=== PATIENT | male | born 1950 | race Caucasian/White ===

== ENCOUNTER 2018-09-08 17:24 | Inpatient (IN) | payer MEDICARE, MEDICAID ==
[~2018-09-08] VITALS: Ht 170.2 cm; Wt 69.9 kg
[2018-09-08] MEDS ORDERED: ALBUTEROL/IPRATROPIUM 2.5MG/0.5MG, 3 ML ONE (18:20)
[2018-09-08] MEDS ORDERED: SODIUM CHLORIDE FLUSH 10ML SYR IVF ONE (18:30)
[2018-09-08] MEDS ORDERED: ALBUTEROL/IPRATROPIUM 2.5MG/0.5MG, 3 ML NPPB SCH (18:30)
[2018-09-08] MEDS ORDERED: methylPREDNISolone SOD SUCC 125 MG/2 ML IVP ONE (18:30)
[2018-09-08 18:52] LABS: BASOPHILS # (AUTO) 0.07 x10^3/uL (0-0.1); BASOPHILS % (AUTO) 1 % (0-1); EOSINOPHILS # (AUTO) 0.22 x10^3/uL (0-0.4); EOSINOPHILS % (AUTO) 3 % (1-7); LYMPHOCYTES % (AUTO) 32 % (22-44); MD NO; MEAN CORPUSCULAR HEMOGLOBIN 34.6 pg (27.5-34.5); MEAN CORPUSCULAR HGB CONC 33.4 g/dL (33.2-36.2); MEAN CORPUSCULAR VOLUME 103.5 fL (81-97); MEAN PLATELET VOLUME 7.7 fL (7.4-10.4); MONOCYTES # (AUTO) 0.62 x10^3/uL (0.2-0.8); MONOCYTES % (AUTO) 7 % (2-9); NEUTROPHILS # (AUTO) 4.89 x10^3/uL (1.8-6.8); NEUTROPHILS % (AUTO) 58 % (42-75); PLATELET COUNT 283 x10^3/uL (130-400); RED BLOOD COUNT 4.72 x10^6/uL (4.38-5.82); RED CELL DISTRIBUTION WIDTH 15.7 % (9.4-14.8)
[2018-09-08 18:56] LABS: INTERNATIONAL NORMALIZED RATIO 0.99 (0.93-1.1); PROTHROMBIN TIME 10.2 Seconds (9.6-11.5)
[2018-09-08 18:57] LABS: ALBUMIN 3.2 g/dL (3.4-5.0); ANION GAP 10 mmol/L (5-15); CALCIUM 8.4 mg/dL (8.5-10.1); CHLORIDE 110 mmol/L (98-107); CREATININE 1.14 mg/dL (0.7-1.3)
[2018-09-08 19:01] LABS: TROPONIN I 0.037 ng/mL (0.000-0.045)
[2018-09-08] MEDS ORDERED: SODIUM CHLORIDE FLUSH 10ML SYR IVF PRN (19:30)
[2018-09-08] MEDS ORDERED: CEFTRIAXONE 1,000 MG in SODIUM CHLORIDE 0.9% 50 ML IV SCH (20:00)
[2018-09-08] MEDS ORDERED: GUAIFENESIN/DM 200-20MG, 10ML UDC PO PRN (20:00)
[2018-09-08] MEDS ORDERED: CHLORDIAZEPOXIDE 25 MG CAPSULE PO PRN (20:00)
[2018-09-08] MEDS ORDERED: POLYETHYLENE GLYCOL 17 GM PACKET PO PRN (20:00)
[2018-09-08] MEDS ORDERED: BISACODYL 10 MG SUPP PR PRN (20:00)
[2018-09-08] MEDS ORDERED: ONDANSETRON ODT 4 MG PO PRN (20:00)
[2018-09-08 20:33] LABS: FOLATE LEVEL 13.6 ng/mL (3.1-17.5)
[2018-09-08] MEDS ORDERED: ALBUTEROL/IPRATROPIUM 2.5MG/0.5MG, 3 ML NPPB PRN (21:00)
[2018-09-08] MEDS: methylPREDNISolone SOD SUCC 125 MG/2 ML IVPush SCH (21:39)
[2018-09-08] MEDS: FUROSEMIDE 20 MG/2 ML IV SCH (21:39)
[2018-09-08] MEDS: POTASSIUM CHLORIDE 20 MEQ TAB.ER.PRT PO SCH (21:40)
[2018-09-08] MEDS: SODIUM CHLORIDE FLUSH 10ML SYR IVF SCH (21:40)
[2018-09-08] MEDS: HEPARIN 5,000 UNITS/ML, 1ML SQ SCH (21:40)
[2018-09-08] MEDS: CEFTRIAXONE PMX 1GM/50ML 50 ML IV SCH (22:04)
[2018-09-08 22:30] VITALS: BP 136/75
[2018-09-08] MEDS: AZITHROMYCIN 500 MG in SODIUM CHLORIDE 0.9% 250 ML IV SCH (22:57)
[2018-09-09 02:00] VITALS: BP 156/93
[2018-09-09] MEDS: methylPREDNISolone SOD SUCC 125 MG/2 ML IVPush SCH ×4 (02:34→20:13)
[2018-09-09] MEDS: HEPARIN 5,000 UNITS/ML, 1ML SQ SCH ×3 (04:38→20:13)
[2018-09-09] MEDS: ACETAMINOPHEN 325 MG TABLET PO PRN ×2 (04:38→21:43)
[2018-09-09] MEDS: ASPIRIN 81 MG TABLET EC PO SCH (05:51)
[2018-09-09 05:52] LABS: BASOPHILS # (AUTO) 0.02 x10^3/uL (0-0.1); BASOPHILS % (AUTO) 0 % (0-1); CALCIUM 8.7 mg/dL (8.5-10.1); CHLORIDE 105 mmol/L (98-107); EOSINOPHILS % (AUTO) 0 % (1-7); LYMPHOCYTES # (AUTO) 0.56 x10^3/uL (1-3.4); LYMPHOCYTES % (AUTO) 10 % (22-44); MD NO; MEAN CORPUSCULAR HEMOGLOBIN 34.6 pg (27.5-34.5); MEAN CORPUSCULAR HGB CONC 33.8 g/dL (33.2-36.2); MEAN CORPUSCULAR VOLUME 102.4 fL (81-97); MEAN PLATELET VOLUME 8.1 fL (7.4-10.4); MONOCYTES # (AUTO) 0.08 x10^3/uL (0.2-0.8); MONOCYTES % (AUTO) 1 % (2-9); NEUTROPHILS # (AUTO) 5.16 x10^3/uL (1.8-6.8); NEUTROPHILS % (AUTO) 89 % (42-75); PLATELET COUNT 267 x10^3/uL (130-400); RED BLOOD COUNT 4.62 x10^6/uL (4.38-5.82); RED CELL DISTRIBUTION WIDTH 15.1 % (9.4-14.8)
[2018-09-09] MEDS ORDERED: ASPIRIN 325 MG TABLET EC PO SCH (06:00)
[2018-09-09 06:01] LABS: ALANINE AMINOTRANSFERASE 52 U/L (12-78); ALBUMIN 3.3 g/dL (3.4-5.0); ALKALINE PHOSPHATASE 93 U/L (45-117); ANION GAP 11 mmol/L (5-15); BILIRUBIN,TOTAL 0.5 mg/dL (0.2-1.0); CHOL/HDL RATIO 1.8; CHOLESTEROL, TOTAL 189 mg/dL (140-239); CREATININE 1.19 mg/dL (0.7-1.3); HDL CHOL % 56 % (26-37); HDL CHOLESTEROL (DIRECT) 105 mg/dL (40-60); LDL CHOLESTEROL,CALCULATED 71 mg/dL (54-169); LDL/HDL RATIO 0.7 (0.5-3.0); TOTAL PROTEIN 7.3 g/dL (6.4-8.2); TRIGLYCERIDES 67 mg/dL (50-200); TROPONIN I 0.024 ng/mL (0.000-0.045); VLDL CHOLESTEROL 13 mg/dL (0-25)
[2018-09-09] MEDS: ALBUTEROL/IPRATROPIUM 2.5MG/0.5MG, 3 ML NPPB SCH ×4 (06:51→18:53)
[2018-09-09 07:03] VITALS: BP 169/103
[2018-09-09] MEDS: POTASSIUM CHLORIDE 20 MEQ TAB.ER.PRT PO SCH ×2 (07:34→16:11)
[2018-09-09] MEDS: FUROSEMIDE 20 MG/2 ML IV SCH ×2 (07:34→16:11)
[2018-09-09] MEDS: SENNA/DOCUSATE TABLET PO SCH ×2 (07:34→09:00)
[2018-09-09] MEDS: SODIUM CHLORIDE FLUSH 10ML SYR IVF SCH ×2 (07:35→20:15)
[2018-09-09 07:40] VITALS: BP 155/90
[2018-09-09 11:37] LABS: TROPONIN I < 0.015 ng/mL (0.000-0.045)
[2018-09-09 12:24] VITALS: BP 133/76
[2018-09-09] MEDS: LORazepam 2 MG/ML, 1ML IVPush PRN ×2 (13:02→20:31)
[2018-09-09] MEDS: BACLOFEN 10 MG TABLET PO SCH ×2 (16:11→21:37)
[2018-09-09 20:00] VITALS: BP 131/74
[2018-09-09] MEDS: CEFTRIAXONE PMX 1GM/50ML 50 ML IV SCH (21:38)
[2018-09-09] MEDS: AZITHROMYCIN 500 MG in SODIUM CHLORIDE 0.9% 250 ML IV SCH (23:27)
[2018-09-10] MEDS: LORazepam 2 MG/ML, 1ML IVPush PRN ×5 (00:50→21:40)
[2018-09-10 01:22] VITALS: BP 137/80
[2018-09-10] MEDS: methylPREDNISolone SOD SUCC 125 MG/2 ML IVPush SCH ×4 (02:11→20:54)
[2018-09-10] MEDS: HEPARIN 5,000 UNITS/ML, 1ML SQ SCH ×3 (04:11→20:54)
[2018-09-10 05:02] VITALS: BP 156/93
[2018-09-10] MEDS: ALBUTEROL/IPRATROPIUM 2.5MG/0.5MG, 3 ML NPPB SCH ×4 (05:25→19:31)
[2018-09-10] MEDS: ASPIRIN 81 MG TABLET EC PO SCH (06:15)
[2018-09-10 07:09] VITALS: BP 147/85
[2018-09-10] MEDS: SENNA/DOCUSATE TABLET PO SCH (08:03)
[2018-09-10] MEDS: MULTIVITAMIN 1 TABLET PO SCH (08:12)
[2018-09-10] MEDS: BACLOFEN 10 MG TABLET PO SCH ×3 (08:12→21:40)
[2018-09-10] MEDS: POTASSIUM CHLORIDE 20 MEQ TAB.ER.PRT PO SCH ×2 (08:12→16:28)
[2018-09-10] MEDS: FUROSEMIDE 20 MG/2 ML IV SCH ×2 (08:12→16:28)
[2018-09-10] MEDS: SODIUM CHLORIDE FLUSH 10ML SYR IVF SCH ×2 (08:13→20:57)
[2018-09-10] MEDS: FOLIC ACID 1 MG TABLET PO SCH (08:13)
[2018-09-10] MEDS: THIAMINE 100MG TABLET PO SCH (08:13)
[2018-09-10 13:18] VITALS: BP 123/76
[2018-09-10] MEDS: ACETAMINOPHEN 325 MG TABLET PO PRN (14:54)
[2018-09-10 19:30] VITALS: BP 116/69
[2018-09-10] MEDS: CEFTRIAXONE PMX 1GM/50ML 50 ML IV SCH (20:54)
[2018-09-10] MEDS: AZITHROMYCIN 500 MG in SODIUM CHLORIDE 0.9% 250 ML IV SCH (23:21)
[2018-09-11] MEDS: LORazepam 2 MG/ML, 1ML IVPush PRN ×3 (01:04→14:44)
[2018-09-11 02:00] VITALS: BP 149/87
[2018-09-11] MEDS: methylPREDNISolone SOD SUCC 125 MG/2 ML IVPush SCH ×2 (02:19→08:51)
[2018-09-11] MEDS: HEPARIN 5,000 UNITS/ML, 1ML SQ SCH ×2 (04:53→12:33)
[2018-09-11 05:29] LABS: ANION GAP 6 mmol/L (5-15); CALCIUM 8.7 mg/dL (8.5-10.1); CHLORIDE 104 mmol/L (98-107)
[2018-09-11 05:32] LABS: ALANINE AMINOTRANSFERASE 34 U/L (12-78); ALKALINE PHOSPHATASE 64 U/L (45-117); BILIRUBIN,TOTAL 0.3 mg/dL (0.2-1.0); CREATININE 1.15 mg/dL (0.7-1.3); TOTAL PROTEIN 6.5 g/dL (6.4-8.2)
[2018-09-11] MEDS: ASPIRIN 81 MG TABLET EC PO SCH (06:19)
[2018-09-11] MEDS: ALBUTEROL/IPRATROPIUM 2.5MG/0.5MG, 3 ML NPPB SCH ×4 (06:47→19:17)
[2018-09-11 06:59] VITALS: BP 145/87
[2018-09-11] MEDS: FUROSEMIDE 20 MG/2 ML IV SCH ×2 (08:50→17:25)
[2018-09-11] MEDS: BACLOFEN 10 MG TABLET PO SCH ×3 (08:51→21:05)
[2018-09-11] MEDS: POTASSIUM CHLORIDE 20 MEQ TAB.ER.PRT PO SCH ×2 (08:51→17:25)
[2018-09-11] MEDS: MULTIVITAMIN 1 TABLET PO SCH (08:51)
[2018-09-11] MEDS: THIAMINE 100MG TABLET PO SCH (08:52)
[2018-09-11] MEDS: FOLIC ACID 1 MG TABLET PO SCH (08:52)
[2018-09-11] MEDS: ACETAMINOPHEN 325 MG TABLET PO PRN ×2 (08:53→14:43)
[2018-09-11] MEDS: SENNA/DOCUSATE TABLET PO SCH (08:53)
[2018-09-11] MEDS: SODIUM CHLORIDE FLUSH 10ML SYR IVF SCH ×2 (08:53→21:05)
[2018-09-11 13:11] VITALS: BP 137/87
[2018-09-11] MEDS ORDERED: OMNIPAQUE 350 MG/ML, 100ML BOTTLE ONE (14:05)
[2018-09-11] MEDS ORDERED: HEPARIN 5,000 UNITS/ML, 1ML IV ONE (15:00)
[2018-09-11] MEDS ORDERED: HEPARIN 25,000 UNITS/500ML PMX 500 ML IV PRN (15:00)
[2018-09-11 19:54] VITALS: BP 126/79
[2018-09-11] MEDS ORDERED: MONTELUKAST 10 MG TABLET PO SCH (21:00)
[2018-09-11] MEDS: CEFTRIAXONE PMX 1GM/50ML 50 ML IV SCH (21:05)
[2018-09-11] MEDS: AZITHROMYCIN 500 MG in SODIUM CHLORIDE 0.9% 250 ML IV SCH (23:47)
[2018-09-12] MEDS: HEPARIN 5,000 UNITS/ML, 1ML IV PRN ×2 (01:32→09:48)
[2018-09-12 02:10] VITALS: BP 156/99
[2018-09-12] MEDS: ALBUTEROL/IPRATROPIUM 2.5MG/0.5MG, 3 ML NPPB SCH ×3 (06:15→14:12)
[2018-09-12] MEDS: ASPIRIN 81 MG TABLET EC PO SCH (06:24)
[2018-09-12 07:18] VITALS: BP 158/101
[2018-09-12 07:22] LABS: MEAN CORPUSCULAR HEMOGLOBIN 34.2 pg (27.5-34.5); MEAN CORPUSCULAR HGB CONC 33.2 g/dL (33.2-36.2); MEAN PLATELET VOLUME 7.8 fL (7.4-10.4); PLATELET COUNT 221 x10^3/uL (130-400); RED BLOOD COUNT 4.83 x10^6/uL (4.38-5.82); RED CELL DISTRIBUTION WIDTH 15.4 % (9.4-14.8)
[2018-09-12 07:33] LABS: ALANINE AMINOTRANSFERASE 38 U/L (12-78); ALBUMIN 2.9 g/dL (3.4-5.0); ANION GAP 7 mmol/L (5-15); CALCIUM 8.5 mg/dL (8.5-10.1); CHLORIDE 102 mmol/L (98-107); CREATININE 1.16 mg/dL (0.7-1.3)
[2018-09-12 07:36] LABS: ALKALINE PHOSPHATASE 62 U/L (45-117); BASOPHILS # (AUTO) 0.05 x10^3/uL (0-0.1); BASOPHILS % (AUTO) 1 % (0-1); BILIRUBIN,TOTAL 0.5 mg/dL (0.2-1.0); EOSINOPHILS # (AUTO) 0.02 x10^3/uL (0-0.4); EOSINOPHILS % (AUTO) 0 % (1-7); LYMPHOCYTES % (AUTO) 16 % (22-44); MD SCAN; MONOCYTES # (AUTO) 0.69 x10^3/uL (0.2-0.8); MONOCYTES % (AUTO) 6 % (2-9); NEUTROPHILS # (AUTO) 8.73 x10^3/uL (1.8-6.8); NEUTROPHILS % (AUTO) 77 % (42-75); TOTAL PROTEIN 6.2 g/dL (6.4-8.2)
[2018-09-12] MEDS: FOLIC ACID 1 MG TABLET PO SCH (08:44)
[2018-09-12] MEDS: FUROSEMIDE 20 MG/2 ML IV SCH (08:44)
[2018-09-12] MEDS: THIAMINE 100MG TABLET PO SCH (08:44)
[2018-09-12] MEDS: POTASSIUM CHLORIDE 20 MEQ TAB.ER.PRT PO SCH (08:45)
[2018-09-12] MEDS: BACLOFEN 10 MG TABLET PO SCH ×2 (08:45→15:47)
[2018-09-12] MEDS: MULTIVITAMIN 1 TABLET PO SCH (08:45)
[2018-09-12] MEDS: SENNA/DOCUSATE TABLET PO SCH (08:46)
[2018-09-12] MEDS ORDERED: FLUTICASONE/VILANTEROL 200-25MCG/INH INH SCH (09:00)
[2018-09-12] MEDS: SODIUM CHLORIDE FLUSH 10ML SYR IVF SCH (09:00)
[2018-09-12] MEDS ORDERED: POTA20TA6 PO (11:55)
[2018-09-12] MEDS ORDERED: CEFT1FRO2 IV (11:55)
[2018-09-12] MEDS ORDERED: MULT1TAB60 PO (11:55)
[2018-09-12] MEDS ORDERED: FOLI-17 PO (11:55)
[2018-09-12] MEDS ORDERED: PRED20TA PO (11:55)
[2018-09-12] MEDS ORDERED: Initiate Coumadin Protocol MC (11:55)
[2018-09-12] MEDS ORDERED: IPRA3AMP30 NPPB (11:55)
[2018-09-12] MEDS ORDERED: THIA100T67 PO (11:55)
[2018-09-12] MEDS ORDERED: FURO10VI37 IV (11:55)
[2018-09-12] MEDS ORDERED: FLUT1BLS INH (11:55)
[2018-09-12] MEDS ORDERED: MONT10TA9 PO (11:55)
[2018-09-12] MEDS ORDERED: BACL-19 PO (11:55)
[2018-09-12] MEDS ORDERED: AZIT250T89 PO (11:55)
[2018-09-12] MEDS ORDERED: ENOX80SY5 SQ (11:57)
[2018-09-12 12:12] LABS: INTERNATIONAL NORMALIZED RATIO 1.09 (0.93-1.1); PROTHROMBIN TIME 11.2 Seconds (9.6-11.5)
[2018-09-12 13:09] VITALS: BP 130/88
[2018-09-12] MEDS ORDERED: WARFARIN 5 MG TABLET PO-COUM ONE (18:00)
== END 2018-09-12 16:13 | DRG 175 ==
LOC: ED 19:38 → EDIP 19:39 → 4EST 20:06
PROVIDERS: ADMIT Internal Medicine; ATTEND Internal Medicine
DX: I26.99 Other pulmonary embolism without acute cor pulmonale (principal); J15.9 Unspecified bacterial pneumonia; I50.43 Acute on chronic combined systolic (congestive) and diastolic (congestive) heart failure; J96.01 Acute respiratory failure with hypoxia; I82.441 Acute embolism and thrombosis of right tibial vein; E44.1 Mild protein-calorie malnutrition; E87.0 Hyperosmolality and hypernatremia; E87.2 Acidosis; F10.239 Alcohol dependence with withdrawal, unspecified; J44.0 Chronic obstructive pulmonary disease with (acute) lower respiratory infection; J44.1 Chronic obstructive pulmonary disease with (acute) exacerbation; J98.11 Atelectasis; Z66 Do not resuscitate; I11.0 Hypertensive heart disease with heart failure; D75.89 Other specified diseases of blood and blood-forming organs; F17.210 Nicotine dependence, cigarettes, uncomplicated; I07.1 Rheumatic tricuspid insufficiency; I27.20 Pulmonary hypertension, unspecified; Z52.4 Kidney donor; Z68.24 Body mass index [BMI] 24.0-24.9, adult; Z23 Encounter for immunization
CPT/HCPCS: 0399T; 36415; 71046; 71275; 80048; 80053; 80061; 82040; 82607; 82746; 83605; 83880; 84484; 85025; 85520; 85610; 85730; 87040; 90656; 93005; 93306; 93970; 94640; 99285; G0378; J0456; J0696; J1644; J7620; Q9967; J1940; J2060; J2930; J7050; J7512

== ENCOUNTER 2019-03-06 00:55 | Inpatient (IN) | payer MEDICARE, MEDICAID ==
[~2019-03-06] VITALS: Ht 170.2 cm; Wt 73.6 kg
[~2019-03-06 00:55] MED LIST: AZIT250T89 PO; BACL-19 PO; CEFT1FRO2 IV; ENOX80SY5 SQ; FLUT1BLS INH; FOLI-17 PO; FURO10VI37 IV; IPRA3AMP30 NPPB; Initiate Coumadin Protocol MC; MONT10TA9 PO; MULT1TAB60 PO; POTA20TA6 PO; PRED20TA PO; THIA100T67 PO
[2019-03-06] MEDS ORDERED: ALBUTEROL/IPRATROPIUM 2.5MG/0.5MG, 3 ML ONE (01:05)
--- NOTE | 2019-03-06 01:07 | NUR ---
BIB [facility] PT WAS AT [facility] WHEN DEVELOPED SOB. SPO2 77% ON ROOM AIR. PLACED ON 6L SPO2 94%. PIV PLACED PER [facility]. PT SMOKES 1/2PACK OF CIGARETTES DAILY. DRINKS 1 PINT DAILY. ALERT AND ORIENTED X4. SPO2 86% ON ROOM AIR. PT PLACED ON 6L NASAL CANNULA AND BREATHING TREATMENT STARTED. PT HAVING TREMORS WHICH HE SAYS ALSO STARTED TONIGHT. HAS HISTORY OF PE AND COPD WITH NO HOME OXYGEN. SAYS HE WAS ON BLOOD THINNERS IN THE HOSPITAL FOR THE PE BUT NEVER GOT HIS PRESCRIPTION FILLED FOR THE BLOOD THINNERS WHEN HE WAS DISCHARGED.
--- NOTE | 2019-03-06 01:11 | NUR ---
PT PLACED ON 6L OXYMASK PER RESPIRATORY THERAPY.
[2019-03-06] MEDS ORDERED: CEFTRIAXONE PMX 1GM/50ML 50 ML ONE (01:28)
[2019-03-06] MEDS ORDERED: CEFTRIAXONE PMX 1GM/50ML 50 ML IV ONE (01:30)
[2019-03-06] MEDS ORDERED: AZITHROMYCIN 500 MG in SODIUM CHLORIDE 0.9% 250 ML IV ONE (01:30)
[2019-03-06] MEDS ORDERED: SODIUM CHLORIDE 0.9% 1,000ML IVBOLUS ONE (01:30)
[2019-03-06] MEDS ORDERED: ALBUTEROL/IPRATROPIUM 2.5MG/0.5MG, 3 ML NPPB ONE (01:30)
[2019-03-06 01:44] LABS: ALBUMIN 3.4 g/dL (3.4-5.0); ANION GAP 10 mmol/L (5-15); CHLORIDE 109 mmol/L (98-107); CREATININE 1.21 mg/dL (0.7-1.3)
[2019-03-06 01:48] LABS: BASOPHILS # (AUTO) 0.01 x10^3/uL (0-0.1); BASOPHILS % (AUTO) 0 % (0-1); EOSINOPHILS # (AUTO) 0.02 x10^3/uL (0-0.4); EOSINOPHILS % (AUTO) 0 % (1-7); LYMPHOCYTES # (AUTO) 0.94 x10^3/uL (1-3.4); LYMPHOCYTES % (AUTO) 10 % (22-44); MD NO; MEAN CORPUSCULAR HEMOGLOBIN 34.5 pg (27.5-34.5); MEAN CORPUSCULAR HGB CONC 34.8 g/dL (33.2-36.2); MEAN CORPUSCULAR VOLUME 99.1 fL (81-97); MEAN PLATELET VOLUME 7.8 fL (7.4-10.4); MONOCYTES # (AUTO) 0.81 x10^3/uL (0.2-0.8); MONOCYTES % (AUTO) 9 % (2-9); NEUTROPHILS # (AUTO) 7.38 x10^3/uL (1.8-6.8); NEUTROPHILS % (AUTO) 81 % (42-75); PLATELET COUNT 141 x10^3/uL (130-400); RED BLOOD COUNT 4.28 x10^6/uL (4.38-5.82); RED CELL DISTRIBUTION WIDTH 15.3 % (9.4-14.8); TROPONIN I < 0.015 ng/mL (0.000-0.045)
--- NOTE | 2019-03-06 01:52 | NUR ---
PT GOING FOR CT SCAN OF CHEST.
--- NOTE | 2019-03-06 02:11 | NUR ---
PT BACK FROM CT. ZITHROMAX STARTED. PT CHANGED TO OPTIFLOW 35% 40LITERS. SPO2 92%
[2019-03-06] MEDS ORDERED: OMNIPAQUE 350 MG/ML, 100ML BOTTLE ONE (02:22)
--- NOTE | 2019-03-06 03:13 | NUR ---
PT SLEEPING. VSS. REMAINS ON OPTIFLOW.
[2019-03-06] MEDS ORDERED: hydrALAzine 20 MG/ML, 1ML IVPush PRN (04:00)
[2019-03-06] MEDS ORDERED: POLYETHYLENE GLYCOL 17 GM PACKET PO PRN (04:00)
[2019-03-06] MEDS ORDERED: ENOXAPARIN 40 MG/0.4 ML SQ SCH (04:00)
[2019-03-06] MEDS ORDERED: NICOTINE 14MG/24 HR PATCH.TD24 TD SCH (04:00)
[2019-03-06] MEDS ORDERED: ACETAMINOPHEN 325 MG TABLET PO PRN (04:00)
[2019-03-06] MEDS: CEFTRIAXONE PMX 2GM/50ML 50 ML IV SCH (04:00)
--- NOTE | 2019-03-06 04:16 | NUR ---
TRANSFERRED TO ROOM 22 ON HOSPITAL BED. TOLERATED WELL.
[2019-03-06] MEDS: methylPREDNISolone SOD SUCC 40 MG/ML IVPush SCH ×4 (04:30→22:43)
[2019-03-06] MEDS ORDERED: methylPREDNISolone SOD SUCC 40 MG/ML ONE ×2 (04:56→11:15)
[2019-03-06] MEDS: POTASSIUM CHLORIDE 20 MEQ, MAGNESIUM SULFATE 1 GM, MVI ADULT 10 ML, THIAMINE 200 MG, FO... IV SCH (05:21)
--- NOTE | 2019-03-06 05:27 | NUR ---
PT MEDICATED PER [facility]. IV INFUSION STARTED AT 75ML/HR.
--- NOTE | 2019-03-06 06:13 | NUR ---
PT SLEEPING. REMAINS ON OPTIFLOW 35% FIO2, 40L. UPDATED ON PLAN OF CARE.
[2019-03-06] MEDS ORDERED: LORazepam 1MG TABLET ONE (06:43)
[2019-03-06] MEDS: LORazepam 1MG TABLET PO PRN ×2 (06:46→22:43)
--- NOTE | 2019-03-06 06:46 | NUR ---
PT UP TO BEDSIDE COMMODE WITH STANDBY ASSIST. PT MEDICATED WITH 1MG ATIVAN FOR TREMORS, ALSO NOTICING DIAPHORESIS. TEMP 99.1 ORAL.
--- NOTE | 2019-03-06 07:06 | NUR ---
HANDOFF REPORT GIVEN TO KATIE GERMAN.
--- NOTE | 2019-03-06 07:13 | NUR ---
[facility] HAND-OFF REPORT RECEIVED FROM MONSERRAT HUMPHRIES. ASSUMING CARE OF PATIENT.
--- NOTE | 2019-03-06 08:00 | NUR ---
BREAKFAST TRAY SERVED TO PATIENT.
[2019-03-06] MEDS ORDERED: OMEPRAZOLE 20 MG CAPSULE.DR ONE (08:34)
[2019-03-06] MEDS ORDERED: CITALOPRAM 20 MG TABLET ONE (08:34)
[2019-03-06] MEDS ORDERED: ENOXAPARIN 40 MG/0.4 ML ONE (08:39)
[2019-03-06] MEDS ORDERED: NICOTINE 14MG/24 HR PATCH.TD24 ONE (08:39)
[2019-03-06] MEDS ORDERED: AZITHROMYCIN 250 MG TABLET ONE (08:40)
[2019-03-06] MEDS: AZITHROMYCIN 250 MG TABLET PO SCH (08:44)
[2019-03-06] MEDS: NICOTINE 14MG/24 HR PATCH.TD24 TD SCH (08:46)
[2019-03-06] MEDS: ENOXAPARIN 40 MG/0.4 ML SQ SCH (08:49)
--- NOTE | 2019-03-06 11:27 | NUR ---
VS UPDATED AND WNL. SOLUMEDROL GIVEN. PT SITTING UP AT BEDSIDE WITH NO COMPLAINTS. CIWA ASSESSMENT COMPLETED WITH SCORE OF 6. NO INTERVENTIONS NEEDED AT THIS TIME.
--- NOTE | 2019-03-06 12:20 | NUR ---
LUNCH BREAK NOTE: SPOKE TO CARIN IN RESPIRATORY AND PT CAN GO TO FLOOR WITH OXY MASK. REPORT CALLED TO THE FLOOR.
[2019-03-06 12:56] VITALS: BP 143/84
[2019-03-06] MEDS ORDERED: ALBUTEROL/IPRATROPIUM 2.5MG/0.5MG, 3 ML NPPB PRN (13:00)
[2019-03-06 14:00] VITALS: BP 150/82
[2019-03-06 19:54] VITALS: BP 143/78
[2019-03-06] MEDS: ENOXAPARIN MC SCH (22:30)
[2019-03-06] MEDS: NICOTINE MC SCH (22:30)
[2019-03-07 00:47] VITALS: BP 125/73
[2019-03-07] MEDS: CEFTRIAXONE PMX 2GM/50ML 50 ML IV SCH (04:06)
[2019-03-07] MEDS: LORazepam 1MG TABLET PO PRN ×3 (04:58→21:45)
[2019-03-07] MEDS: methylPREDNISolone SOD SUCC 40 MG/ML IVPush SCH ×4 (04:58→22:33)
[2019-03-07] MEDS: POTASSIUM CHLORIDE 20 MEQ, MAGNESIUM SULFATE 1 GM, MVI ADULT 10 ML, THIAMINE 200 MG, FO... IV SCH (04:58)
[2019-03-07 05:56] LABS: BASOPHILS % (AUTO) 0 % (0-1); EOSINOPHILS % (AUTO) 0 % (1-7); LYMPHOCYTES # (AUTO) 0.65 x10^3/uL (1-3.4); LYMPHOCYTES % (AUTO) 8 % (22-44); MD NO; MEAN CORPUSCULAR HEMOGLOBIN 34.6 pg (27.5-34.5); MEAN CORPUSCULAR HGB CONC 34.3 g/dL (33.2-36.2); MEAN CORPUSCULAR VOLUME 100.8 fL (81-97); MEAN PLATELET VOLUME 8.4 fL (7.4-10.4); MONOCYTES # (AUTO) 0.45 x10^3/uL (0.2-0.8); MONOCYTES % (AUTO) 6 % (2-9); NEUTROPHILS # (AUTO) 6.67 x10^3/uL (1.8-6.8); NEUTROPHILS % (AUTO) 86 % (42-75); PLATELET COUNT 117 x10^3/uL (130-400); RED BLOOD COUNT 4.09 x10^6/uL (4.38-5.82)
[2019-03-07 06:07] LABS: CHLORIDE 109 mmol/L (98-107)
[2019-03-07] MEDS: ENOXAPARIN MC SCH (06:30)
[2019-03-07] MEDS: NICOTINE MC SCH (06:30)
[2019-03-07 06:47] LABS: ALANINE AMINOTRANSFERASE 53 U/L (12-78); ALKALINE PHOSPHATASE 62 U/L (45-117); ANION GAP 5 mmol/L (5-15); BILIRUBIN,TOTAL 0.7 mg/dL (0.2-1.0); CALCIUM 8.2 mg/dL (8.5-10.1); CREATININE 0.99 mg/dL (0.7-1.3); TOTAL PROTEIN 6.1 g/dL (6.4-8.2)
[2019-03-07 07:33] VITALS: BP 122/75
[2019-03-07] MEDS: ENOXAPARIN 40 MG/0.4 ML SQ SCH ×2 (08:40→08:46)
[2019-03-07] MEDS: AZITHROMYCIN 250 MG TABLET PO SCH (08:40)
[2019-03-07] MEDS: NICOTINE 14MG/24 HR PATCH.TD24 TD SCH ×2 (08:41→08:46)
[2019-03-07 13:50] VITALS: BP 125/77
[2019-03-07 20:23] VITALS: BP 157/85
[2019-03-07 21:44] VITALS: BP 158/84
[2019-03-07] MEDS: TRAZODONE 50MG TABLET PO PRN (22:33)
[2019-03-08 01:09] VITALS: BP 158/90
[2019-03-08] MEDS: CEFTRIAXONE PMX 2GM/50ML 50 ML IV SCH (04:19)
[2019-03-08] MEDS: POTASSIUM CHLORIDE 20 MEQ, MAGNESIUM SULFATE 1 GM, MVI ADULT 10 ML, THIAMINE 200 MG, FO... IV SCH (04:19)
[2019-03-08] MEDS: methylPREDNISolone SOD SUCC 40 MG/ML IVPush SCH ×4 (04:20→22:46)
[2019-03-08 07:16] VITALS: BP 154/88
[2019-03-08] MEDS: ENOXAPARIN 40 MG/0.4 ML SQ SCH (08:53)
[2019-03-08] MEDS: NICOTINE 14MG/24 HR PATCH.TD24 TD SCH (08:53)
[2019-03-08] MEDS: AZITHROMYCIN 250 MG TABLET PO SCH (08:53)
[2019-03-08 13:58] VITALS: BP 126/86
[2019-03-08] MEDS: LORazepam 1MG TABLET PO PRN (14:01)
[2019-03-08] MEDS: TRAZODONE 50MG TABLET PO PRN (20:00)
[2019-03-08] MEDS: ALBUTEROL/IPRATROPIUM 2.5MG/0.5MG, 3 ML NPPB SCH (20:29)
[2019-03-08 20:48] VITALS: BP 137/77
[2019-03-09 00:58] VITALS: BP 151/83
[2019-03-09] MEDS: CEFTRIAXONE PMX 2GM/50ML 50 ML IV SCH (04:15)
[2019-03-09] MEDS: POTASSIUM CHLORIDE 20 MEQ, MAGNESIUM SULFATE 1 GM, MVI ADULT 10 ML, THIAMINE 200 MG, FO... IV SCH (05:17)
[2019-03-09] MEDS: methylPREDNISolone SOD SUCC 40 MG/ML IVPush SCH ×2 (05:17→10:21)
[2019-03-09 06:20] LABS: BASOPHILS # (AUTO) 0.02 x10^3/uL (0-0.1); BASOPHILS % (AUTO) 0 % (0-1); EOSINOPHILS % (AUTO) 0 % (1-7); LYMPHOCYTES # (AUTO) 0.59 x10^3/uL (1-3.4); LYMPHOCYTES % (AUTO) 7 % (22-44); MD NO; MEAN CORPUSCULAR HEMOGLOBIN 33.9 pg (27.5-34.5); MEAN CORPUSCULAR HGB CONC 33.5 g/dL (33.2-36.2); MEAN CORPUSCULAR VOLUME 101.2 fL (81-97); MEAN PLATELET VOLUME 7.9 fL (7.4-10.4); MONOCYTES # (AUTO) 0.38 x10^3/uL (0.2-0.8); MONOCYTES % (AUTO) 5 % (2-9); NEUTROPHILS # (AUTO) 7.02 x10^3/uL (1.8-6.8); NEUTROPHILS % (AUTO) 88 % (42-75); PLATELET COUNT 160 x10^3/uL (130-400); RED BLOOD COUNT 4.18 x10^6/uL (4.38-5.82); RED CELL DISTRIBUTION WIDTH 15.2 % (9.4-14.8)
[2019-03-09 06:34] LABS: ALANINE AMINOTRANSFERASE 50 U/L (12-78); ALBUMIN 2.7 g/dL (3.4-5.0); CREATININE 1.04 mg/dL (0.7-1.3)
[2019-03-09 06:36] LABS: ALKALINE PHOSPHATASE 52 U/L (45-117); BILIRUBIN,TOTAL 0.3 mg/dL (0.2-1.0); TOTAL PROTEIN 5.7 g/dL (6.4-8.2)
[2019-03-09 06:38] LABS: ANION GAP 7 mmol/L (5-15); CHLORIDE 109 mmol/L (98-107)
[2019-03-09 07:49] VITALS: BP 164/90
[2019-03-09] MEDS: ALBUTEROL/IPRATROPIUM 2.5MG/0.5MG, 3 ML NPPB SCH (08:30)
[2019-03-09] MEDS: AZITHROMYCIN 250 MG TABLET PO SCH (08:36)
[2019-03-09] MEDS: NICOTINE 14MG/24 HR PATCH.TD24 TD SCH (08:36)
[2019-03-09] MEDS: ENOXAPARIN 40 MG/0.4 ML SQ SCH (08:36)
[2019-03-09] MEDS ORDERED: AMLODIPINE 5 MG TABLET PO SCH (09:00)
[2019-03-09] MEDS: LORazepam 1MG TABLET PO PRN ×2 (09:06→17:09)
[2019-03-09 12:51] VITALS: BP 147/95
[2019-03-09 13:30] VITALS: BP 135/83
[2019-03-09 19:42] VITALS: BP 150/88
[2019-03-09] MEDS: TRAZODONE 50MG TABLET PO PRN (22:27)
[2019-03-10] MEDS: CEFTRIAXONE PMX 2GM/50ML 50 ML IV SCH (03:23)
[2019-03-10 03:50] VITALS: BP 155/85
[2019-03-10] MEDS: POTASSIUM CHLORIDE 20 MEQ, MAGNESIUM SULFATE 1 GM, MVI ADULT 10 ML, THIAMINE 200 MG, FO... IV SCH (04:10)
[2019-03-10 07:56] VITALS: BP 158/103
[2019-03-10] MEDS: AMLODIPINE 10 MG TAB PO SCH (09:45)
[2019-03-10] MEDS: AZITHROMYCIN 250 MG TABLET PO SCH (09:46)
[2019-03-10] MEDS: ENOXAPARIN 40 MG/0.4 ML SQ SCH (09:46)
[2019-03-10] MEDS: LORazepam 1MG TABLET PO PRN ×3 (09:47→20:52)
[2019-03-10] MEDS: NICOTINE 14MG/24 HR PATCH.TD24 TD SCH (09:47)
[2019-03-10 15:30] VITALS: BP 109/75
[2019-03-10] MEDS: METOPROLOL TARTRATE 25 MG TABLET PO SCH (18:19)
[2019-03-10 19:02] VITALS: BP 142/86
[2019-03-10] MEDS: TRAZODONE 50MG TABLET PO PRN (20:51)
[2019-03-10] MEDS ORDERED: ATORVASTATIN 40 MG TABLET PO SCH (21:00)
[2019-03-11 01:11] VITALS: BP 129/89
[2019-03-11] MEDS: POTASSIUM CHLORIDE 20 MEQ, MAGNESIUM SULFATE 1 GM, MVI ADULT 10 ML, THIAMINE 200 MG, FO... IV SCH (03:59)
[2019-03-11] MEDS: METOPROLOL TARTRATE 25 MG TABLET PO SCH (05:01)
[2019-03-11 05:58] LABS: CHLORIDE 101 mmol/L (98-107)
[2019-03-11] MEDS ORDERED: ASPIRIN 325 MG TABLET EC PO SCH (06:00)
[2019-03-11 06:03] LABS: ALANINE AMINOTRANSFERASE 65 U/L (12-78); ALBUMIN 2.9 g/dL (3.4-5.0); ALKALINE PHOSPHATASE 56 U/L (45-117); ANION GAP 4 mmol/L (5-15); BILIRUBIN,TOTAL 0.5 mg/dL (0.2-1.0); CALCIUM 8.5 mg/dL (8.5-10.1); CREATININE 1.05 mg/dL (0.7-1.3); TOTAL PROTEIN 6.1 g/dL (6.4-8.2)
[2019-03-11 06:22] LABS: BASOPHILS # (AUTO) 0.02 x10^3/uL (0-0.1); BASOPHILS % (AUTO) 0 % (0-1); EOSINOPHILS # (AUTO) 0.05 x10^3/uL (0-0.4); EOSINOPHILS % (AUTO) 1 % (1-7); LYMPHOCYTES # (AUTO) 1.97 x10^3/uL (1-3.4); LYMPHOCYTES % (AUTO) 25 % (22-44); MD NO; MEAN CORPUSCULAR HEMOGLOBIN 34.5 pg (27.5-34.5); MEAN CORPUSCULAR HGB CONC 34.1 g/dL (33.2-36.2); MEAN CORPUSCULAR VOLUME 101.1 fL (81-97); MEAN PLATELET VOLUME 7.6 fL (7.4-10.4); MONOCYTES # (AUTO) 0.82 x10^3/uL (0.2-0.8); MONOCYTES % (AUTO) 10 % (2-9); NEUTROPHILS % (AUTO) 64 % (42-75); PLATELET COUNT 198 x10^3/uL (130-400); RED BLOOD COUNT 4.77 x10^6/uL (4.38-5.82)
[2019-03-11 07:53] VITALS: BP 131/93
[2019-03-11] MEDS: NICOTINE 14MG/24 HR PATCH.TD24 TD SCH (08:55)
[2019-03-11] MEDS: ENOXAPARIN 40 MG/0.4 ML SQ SCH (08:56)
[2019-03-11] MEDS: AZITHROMYCIN 250 MG TABLET PO SCH (08:56)
[2019-03-11] MEDS: AMLODIPINE 10 MG TAB PO SCH (08:56)
[2019-03-11] MEDS: LORazepam 1MG TABLET PO PRN (09:07)
[2019-03-11] MEDS ORDERED: ASPI-650 PO (11:37)
[2019-03-11] MEDS ORDERED: AMLO10TA8 PO (11:37)
[2019-03-11] MEDS ORDERED: ATOR40TA78 PO (11:37)
[2019-03-11] MEDS ORDERED: METO25TA35 PO (11:37)
[2019-03-11] MEDS ORDERED: CEFD300C37 PO (11:37)
[2019-03-11 13:34] VITALS: BP 122/82
== END 2019-03-11 16:15 | DRG 871 ==
LOC: ED 01:41 → EDIP 03:27 → 4EST 13:17 → 3NE 03-09 13:37
PROVIDERS: ADMIT Family Medicine; ATTEND Family Medicine
DX: A41.9 Sepsis, unspecified organism (principal); J96.01 Acute respiratory failure with hypoxia; J18.1 Lobar pneumonia, unspecified organism; J44.0 Chronic obstructive pulmonary disease with (acute) lower respiratory infection; F10.239 Alcohol dependence with withdrawal, unspecified; J44.1 Chronic obstructive pulmonary disease with (acute) exacerbation; Z71.6 Tobacco abuse counseling; D69.6 Thrombocytopenia, unspecified; I10 Essential (primary) hypertension; K76.0 Fatty (change of) liver, not elsewhere classified; Z79.01 Long term (current) use of anticoagulants; Z79.899 Other long term (current) drug therapy; Z86.711 Personal history of pulmonary embolism; Z86.73 Personal history of transient ischemic attack (TIA), and cerebral infarction without residual deficits; Z90.5 Acquired absence of kidney; Z91.14 Patient's other noncompliance with medication regimen; F17.210 Nicotine dependence, cigarettes, uncomplicated
CPT/HCPCS: 36415; 36600; 70450; 71045; 71275; 80048; 80053; 82040; 82803; 83735; 83880; 84484; 85025; 87040; 93005; 94640; 96365; 96368; 99285; G0378; J0456; J0696; J1650; J3411; J3475; J3480; J7620; Q9967; J2920; J7030; J7050; J7512

== ENCOUNTER 2019-06-22 10:16 | Inpatient (IN) | payer MEDICARE, MEDICAID ==
[~2019-06-22] VITALS: Ht 170.2 cm; Wt 69.1 kg
[2019-06-29 07:51] VITALS: BP 127/74
== END 2019-06-29 11:59 | disposition home or self-care (01) | DRG 557 ==
LOC: ED 11:58 → EDIP 14:22 → 4EST 15:54
PROVIDERS: ADMIT Internal Medicine; ATTEND Internal Medicine
DX: M62.82 Rhabdomyolysis (principal); J96.00 Acute respiratory failure, unspecified whether with hypoxia or hypercapnia; F10.239 Alcohol dependence with withdrawal, unspecified; M60.9 Myositis, unspecified; E83.42 Hypomagnesemia; E87.6 Hypokalemia; F17.210 Nicotine dependence, cigarettes, uncomplicated; G47.00 Insomnia, unspecified; I11.0 Hypertensive heart disease with heart failure; I50.9 Heart failure, unspecified; J44.9 Chronic obstructive pulmonary disease, unspecified; K52.9 Noninfective gastroenteritis and colitis, unspecified; Z59.0 Homelessness; Z86.711 Personal history of pulmonary embolism; Z90.5 Acquired absence of kidney; Z71.6 Tobacco abuse counseling; Z71.41 Alcohol abuse counseling and surveillance of alcoholic
CPT/HCPCS: 36415; 36600; 80048; 80053; 82085; 82550; 82565; 82803; 83690; 83735; 83874; 85025; 85651; 86038; 86039; 94640; 96365; G0378; J1650; J3411; J3475; J7620; J7626; J2060; J7030; J7512

== ENCOUNTER 2019-12-14 21:13 | Inpatient (IN) | payer MEDICARE, MEDICAID ==
[~2019-12-14] VITALS: Ht 170.2 cm; Wt 65.0 kg
[~2019-12-14 21:13] MED LIST changes: +ACID1TAB7 PO; +AMLO10TA8 PO; +ASPI-650 PO; +ATOR40TA78 PO; +CARV12.543 PO; +CEFD300C37 PO; +FURO20TA3 PO; +LOPE2CAP PO; +METO25TA35 PO; +NICO-486 TD; +PRED10TA PO; +PRED5TAB PO
--- NOTE | 2019-12-14 21:32 | NUR ---
Patient brought in by [facility]; patient alert, oriented. Transferred from [facility]. Patient there to detox from alcohol. Patient drinks about a pint a day. Patient reports lengthy history of shortness of breath, reports being at his baseline, but required additional of 2L nasal cannula oxygen to keep pulsatile oxygen above 88%
[2019-12-14 22:14] LABS: BASOPHILS # (AUTO) 0.16 x10^3/uL (0-0.1); BASOPHILS % (AUTO) 1 % (0-1); EOSINOPHILS # (AUTO) 0.23 x10^3/uL (0-0.4); EOSINOPHILS % (AUTO) 2 % (1-7); LYMPHOCYTES % (AUTO) 21 % (22-44); MD NO; MEAN CORPUSCULAR HEMOGLOBIN 34.4 pg (27.5-34.5); MEAN CORPUSCULAR VOLUME 101.1 fL (81-97); MEAN PLATELET VOLUME 7.6 fL (7.4-10.4); MONOCYTES % (AUTO) 8 % (2-9); NEUTROPHILS # (AUTO) 7.96 x10^3/uL (1.8-6.8); NEUTROPHILS % (AUTO) 67 % (42-75); PLATELET COUNT 267 x10^3/uL (130-400); RED BLOOD COUNT 4.82 x10^6/uL (4.38-5.82); RED CELL DISTRIBUTION WIDTH 15.6 % (9.4-14.8)
[2019-12-14 22:26] LABS: ALBUMIN 2.9 g/dL (3.4-5.0); ANION GAP 11 mmol/L (5-15); CALCIUM 8.6 mg/dL (8.5-10.1); CHLORIDE 103 mmol/L (98-107); CREATININE 1.05 mg/dL (0.7-1.3)
[2019-12-14 22:30] LABS: TROPONIN I < 0.015 ng/mL (0.000-0.045)
[2019-12-14] MEDS ORDERED: ALBUTEROL/IPRATROPIUM 2.5MG/0.5MG, 3 ML NPPB ONE (23:00)
[2019-12-14] MEDS ORDERED: ALBUTEROL/IPRATROPIUM 2.5MG/0.5MG, 3 ML ONE (23:10)
--- NOTE | 2019-12-14 23:10 | NUR ---
Patient refusing prednisone because he feels they gave him a headache the week prior. Attempted to educate patient; patient not agreeable. Medication refused.
[2019-12-14] MEDS ORDERED: SODIUM CHLORIDE 0.9% 1,000ML IVBOLUS ONE (23:30)
[2019-12-14] MEDS ORDERED: CEFTRIAXONE PMX 1GM/50ML 50 ML IVPB ONE (23:30)
[2019-12-14] MEDS ORDERED: AZITHROMYCIN 500 MG in SODIUM CHLORIDE 0.9% 250 ML IVPB ONE (23:30)
[2019-12-14] MEDS ORDERED: NICOTINE 14MG/24 HR PATCH.TD24 ONE (23:47)
[2019-12-14] MEDS ORDERED: THIAMINE 100MG TABLET ONE (23:47)
[2019-12-14] MEDS ORDERED: DEXAMETHASONE 4 MG/ML, 5ML ONE (23:47)
[2019-12-14] MEDS: NICOTINE 14MG/24 HR PATCH.TD24 TD SCH (23:50)
[2019-12-14] MEDS: THIAMINE 100MG TABLET PO SCH (23:51)
[2019-12-15] MEDS ORDERED: DEXAMETHASONE 4 MG/ML, 1ML IVPush ONE
[2019-12-15] MEDS ORDERED: GUAIFENESIN/DM 200-20MG, 10ML UDC PO PRN
[2019-12-15] MEDS ORDERED: LORazepam 2 MG/ML, 1ML IVPush PRN
[2019-12-15] MEDS ORDERED: BISACODYL 10 MG SUPP PR PRN
[2019-12-15] MEDS ORDERED: CHLORDIAZEPOXIDE 25 MG CAPSULE PO PRN
[2019-12-15] MEDS ORDERED: POLYETHYLENE GLYCOL 17 GM PACKET PO PRN
[2019-12-15] MEDS ORDERED: ONDANSETRON ODT 4 MG PO PRN
[2019-12-15] MEDS ORDERED: CEFTRIAXONE PMX 1GM/50ML 50 ML ONE (00:07)
[2019-12-15] MEDS ORDERED: ALBUTEROL/IPRATROPIUM 2.5MG/0.5MG, 3 ML NPPB PRN (01:30)
[2019-12-15] MEDS: ACETAMINOPHEN 325 MG TABLET PO PRN ×3 (01:35→20:49)
[2019-12-15 01:40] VITALS: BP 123/83
[2019-12-15] MEDS: SODIUM CHLORIDE FLUSH 10ML SYR IVF SCH ×3 (02:12→20:49)
[2019-12-15] MEDS: AZITHROMYCIN 500 MG in SODIUM CHLORIDE 0.9% 250 ML IV SCH (02:13)
[2019-12-15 05:26] LABS: BASOPHILS # (AUTO) 0.03 x10^3/uL (0-0.1); BASOPHILS % (AUTO) 0 % (0-1); EOSINOPHILS # (AUTO) 0.04 x10^3/uL (0-0.4); EOSINOPHILS % (AUTO) 0 % (1-7); LYMPHOCYTES # (AUTO) 0.54 x10^3/uL (1-3.4); LYMPHOCYTES % (AUTO) 6 % (22-44); MD NO; MEAN CORPUSCULAR HEMOGLOBIN 34.4 pg (27.5-34.5); MEAN CORPUSCULAR HGB CONC 33.6 g/dL (33.2-36.2); MEAN CORPUSCULAR VOLUME 102.6 fL (81-97); MEAN PLATELET VOLUME 7.8 fL (7.4-10.4); MONOCYTES # (AUTO) 0.18 x10^3/uL (0.2-0.8); MONOCYTES % (AUTO) 2 % (2-9); NEUTROPHILS % (AUTO) 92 % (42-75); PLATELET COUNT 248 x10^3/uL (130-400); RED BLOOD COUNT 4.67 x10^6/uL (4.38-5.82); RED CELL DISTRIBUTION WIDTH 15.5 % (9.4-14.8)
[2019-12-15 05:33] LABS: CALCIUM 8.3 mg/dL (8.5-10.1); CHLORIDE 104 mmol/L (98-107)
[2019-12-15 05:37] LABS: ANION GAP 7 mmol/L (5-15); CREATININE 1.26 mg/dL (0.7-1.3)
[2019-12-15] MEDS: CARVEDILOL 12.5 MG TABLET PO SCH ×2 (05:59→16:48)
[2019-12-15] MEDS: HEPARIN 5,000 UNITS/ML, 1ML SQ SCH ×3 (08:00→16:00)
[2019-12-15 08:40] VITALS: BP 106/59
[2019-12-15] MEDS ORDERED: THIAMINE 100MG TABLET PO SCH (09:00)
[2019-12-15] MEDS ORDERED: MULTIVITAMIN 1 TABLET PO SCH (09:00)
[2019-12-15] MEDS: POTASSIUM CHLORIDE 20 MEQ TAB.ER.PRT PO SCH (09:51)
[2019-12-15] MEDS: THIAMINE 100MG TABLET PO SCH ×2 (09:51→20:49)
[2019-12-15] MEDS: MULTIVITAMINS/MINERALS TABLET PO SCH (09:51)
[2019-12-15] MEDS: FUROSEMIDE 20 MG TABLET PO SCH ×2 (09:52→16:48)
[2019-12-15] MEDS: FOLIC ACID 1 MG TABLET PO SCH (09:52)
[2019-12-15] MEDS: SENNA/DOCUSATE TABLET PO SCH (09:52)
[2019-12-15 13:08] VITALS: BP 122/85
[2019-12-15] MEDS ORDERED: ATORVASTATIN 40 MG TABLET PO SCH (21:00)
[2019-12-15 21:10] VITALS: BP 109/75
[2019-12-16] MEDS ORDERED: CEFTRIAXONE PMX 1GM/50ML 50 ML IV SCH
[2019-12-16] MEDS: HEPARIN 5,000 UNITS/ML, 1ML SQ SCH ×3 (00:15→16:00)
[2019-12-16] MEDS: NICOTINE 14MG/24 HR PATCH.TD24 TD SCH (00:15)
[2019-12-16 01:28] VITALS: BP 102/65
[2019-12-16] MEDS: AZITHROMYCIN 500 MG in SODIUM CHLORIDE 0.9% 250 ML IV SCH (01:33)
[2019-12-16 05:29] VITALS: BP 137/90
[2019-12-16] MEDS: CARVEDILOL 12.5 MG TABLET PO SCH (05:30)
[2019-12-16 06:04] LABS: BASOPHILS # (AUTO) 0.03 x10^3/uL (0-0.1); BASOPHILS % (AUTO) 0 % (0-1); EOSINOPHILS # (AUTO) 0.04 x10^3/uL (0-0.4); EOSINOPHILS % (AUTO) 0 % (1-7); LYMPHOCYTES # (AUTO) 1.49 x10^3/uL (1-3.4); LYMPHOCYTES % (AUTO) 11 % (22-44); MD NO; MEAN CORPUSCULAR HEMOGLOBIN 33.6 pg (27.5-34.5); MEAN CORPUSCULAR HGB CONC 32.5 g/dL (33.2-36.2); MEAN CORPUSCULAR VOLUME 103.3 fL (81-97); MEAN PLATELET VOLUME 8.4 fL (7.4-10.4); MONOCYTES % (AUTO) 6 % (2-9); NEUTROPHILS # (AUTO) 11.52 x10^3/uL (1.8-6.8); NEUTROPHILS % (AUTO) 83 % (42-75); PLATELET COUNT 260 x10^3/uL (130-400); RED BLOOD COUNT 5.03 x10^6/uL (4.38-5.82); RED CELL DISTRIBUTION WIDTH 15.4 % (9.4-14.8)
[2019-12-16 06:09] LABS: CHLORIDE 104 mmol/L (98-107)
[2019-12-16 06:18] LABS: ALANINE AMINOTRANSFERASE 17 U/L (12-78); ALBUMIN 2.6 g/dL (3.4-5.0); ALKALINE PHOSPHATASE 72 U/L (45-117); ANION GAP 4 mmol/L (5-15); BILIRUBIN,TOTAL 0.6 mg/dL (0.2-1.0); CALCIUM 8.8 mg/dL (8.5-10.1); CREATININE 1.13 mg/dL (0.7-1.3); TOTAL PROTEIN 6.6 g/dL (6.4-8.2)
[2019-12-16 07:32] VITALS: BP 124/87
[2019-12-16] MEDS: MULTIVITAMINS/MINERALS TABLET PO SCH (08:59)
[2019-12-16] MEDS: SENNA/DOCUSATE TABLET PO SCH (08:59)
[2019-12-16] MEDS: POTASSIUM CHLORIDE 20 MEQ TAB.ER.PRT PO SCH (08:59)
[2019-12-16] MEDS: ACETAMINOPHEN 325 MG TABLET PO PRN (08:59)
[2019-12-16] MEDS: FOLIC ACID 1 MG TABLET PO SCH (08:59)
[2019-12-16] MEDS: SODIUM CHLORIDE FLUSH 10ML SYR IVF SCH (08:59)
[2019-12-16] MEDS: FUROSEMIDE 20 MG TABLET PO SCH (08:59)
[2019-12-16] MEDS: THIAMINE 100MG TABLET PO SCH (08:59)
[2019-12-16 12:15] VITALS: BP 114/78
[2019-12-16] MEDS ORDERED: CEFD300C37 PO (15:19)
[2019-12-16] MEDS ORDERED: DOXY100T23 PO (15:19)
== END 2019-12-16 17:08 | disposition home or self-care (01) | DRG 193 ==
LOC: ED 22:25 → EDIP 23:28 → 3N 12-15 00:30 → DCLOUNGE 12-16 16:58
PROVIDERS: ADMIT Internal Medicine; ATTEND Internal Medicine
DX: J18.9 Pneumonia, unspecified organism (principal); J96.01 Acute respiratory failure with hypoxia; J44.0 Chronic obstructive pulmonary disease with (acute) lower respiratory infection; I50.32 Chronic diastolic (congestive) heart failure; D75.89 Other specified diseases of blood and blood-forming organs; E78.5 Hyperlipidemia, unspecified; E87.6 Hypokalemia; F10.20 Alcohol dependence, uncomplicated; I27.20 Pulmonary hypertension, unspecified; Z66 Do not resuscitate; Y90.9 Presence of alcohol in blood, level not specified; Z59.0 Homelessness; Z86.711 Personal history of pulmonary embolism; Z87.01 Personal history of pneumonia (recurrent); Z90.5 Acquired absence of kidney; Z91.19 Patient's noncompliance with other medical treatment and regimen; Z87.891 Personal history of nicotine dependence
CPT/HCPCS: 36415; 71045; 80048; 80053; 82040; 82607; 83880; 84145; 84484; 85025; 87040; 93005; 94640; 99285; G0378; J0456; J0696; J1100; J7620; J7030; J7050

== ENCOUNTER 2019-12-27 19:47 | Emergency (ER) | payer MEDICAID, MEDICARE ==
[~2019-12-27] VITALS: Ht 170.2 cm; Wt 70.0 kg
[~2019-12-27 19:47] MED LIST changes: +DOXY100T23 PO; +MONT10TA11 PO; -MONT10TA9 PO
[2019-12-27 20:07] VITALS: BP 117/69
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
--- NOTE | 2019-12-27 20:25 | NUR ---
PT REFUSING ALL LABS.
--- NOTE | 2019-12-27 20:31 | NUR ---
PT STATES "WHY AM I TIED DOWN, GET ME OUT OF THESE FUCKIN RESTRAINTS"
--- NOTE | 2019-12-27 20:32 | NUR ---
PT REFUSING TO ANSWER ASSESSMENT QUESTIONS
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
--- NOTE | 2019-12-28 | NUR ---
PT RESTING ON GURNEY WITH EYE CLOSED, RESPIRATIONS EVEN AND UNLABORED. NO ACUTE DISTRESS. WILL CONTINUE TO MONITOR.
--- NOTE | 2019-12-28 02:59 | NUR ---
PT AMBULATORY TO THE DISCHARGE DESK WITH A STEADY GAIT. PT A+OX4. PT OFFERED A TAXI VOUCHER AND HE SAID HE DIDNT WANT IT. PT SAID HE IS GOING TO WALK OVER TO THE CIRCUS CIRCUS AND DIDNT WANT A TAXI.
== END 2019-12-28 03:02 | disposition home or self-care (01) ==
LOC: ED 12-28 02:55 → MERGE 12-28 02:55 → ED 12-28 03:02
DX: F10.220 Alcohol dependence with intoxication, uncomplicated (principal); Y90.9 Presence of alcohol in blood, level not specified
CPT/HCPCS: 99283

== ENCOUNTER 2020-04-08 15:00 | Emergency (ER) | payer MEDICAID, MEDICARE ==
[~2020-04-08] VITALS: Ht 170.2 cm; Wt 77.0 kg
[~2020-04-08 15:00] MED LIST changes: +MULT-449 PO; -MULT1TAB60 PO
--- NOTE | 2020-04-08 15:15 | NUR ---
DON. REPORT RECEIVED FROM EMS. PT WAS FOUND AT [facility]. +ETOH. PT WAS DC FROM HOSPITAL(UNKNOWN) AT 10AM TODAY AND HAS BEEN DRINKING SINCE THEN. NO TRAUMA/GLF. INCONTINENT URINE. PT'S AOX4. RESPS EVEN AND UNLABORED. BP/SPO2 MONITORS IN PLACE. CALL LIGHT WITHIN REACH. EDMD AT BEDSIDE TO EVALUATE AT THIS TIME.
--- NOTE | 2020-04-08 15:26 | NUR ---
URINAL AT BEDSIDE.
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
[2020-04-08 15:39] LABS: BASOPHILS # (AUTO) 0.05 x10^3/uL (0-0.1); BASOPHILS % (AUTO) 1 % (0-1); EOSINOPHILS # (AUTO) 0.03 x10^3/uL (0-0.4); EOSINOPHILS % (AUTO) 1 % (1-7); LYMPHOCYTES # (AUTO) 1.31 x10^3/uL (1-3.4); LYMPHOCYTES % (AUTO) 20 % (22-44); MD NO; MEAN CORPUSCULAR HEMOGLOBIN 33.5 pg (27.5-34.5); MEAN CORPUSCULAR HGB CONC 33.3 g/dL (33.2-36.2); MEAN PLATELET VOLUME 7.7 fL (7.4-10.4); MONOCYTES # (AUTO) 0.61 x10^3/uL (0.2-0.8); MONOCYTES % (AUTO) 9 % (2-9); NEUTROPHILS # (AUTO) 4.69 x10^3/uL (1.8-6.8); NEUTROPHILS % (AUTO) 70 % (42-75); PLATELET COUNT 211 x10^3/uL (130-400); RED BLOOD COUNT 5.15 x10^6/uL (4.38-5.82)
[2020-04-08 15:47] LABS: ALBUMIN 3.6 g/dL (3.4-5.0); ANION GAP 10 mmol/L (5-15); CALCIUM 9.2 mg/dL (8.5-10.1); CHLORIDE 105 mmol/L (98-107); CREATININE 1.29 mg/dL (0.7-1.3); SALICYLATE LEVEL 2.5 mg/dL (2.8-20.0)
[2020-04-08 15:53] VITALS: BP 182/91
--- NOTE | 2020-04-08 15:54 | NUR ---
PT PUT ALL CODES(BP/SPO2/CALL LIGHT) IN BIOHAZARD TRUSH AT THIS TIME. THIS RN EDUCATED REGARDING PT'S BEHAVIOR. PT BACK TO [place]. BP/SPO2 MONITORS IN PLACE. CALL LIGHT WITHIN REACH. PT STATES"ALL OF THEM ARE CONTAMINATED. PLEASE DON'T TOUCH ME."
--- NOTE | 2020-04-08 17:05 | NUR ---
PT REFUSED TO TAKE [place] PAPER AT [place].
--- NOTE | 2020-04-08 17:07 | NUR ---
Patient given discharge instructions and they have confirmed that they understand the instructions. Patient ambulatory with steady gait.
== END 2020-04-08 17:08 | disposition home or self-care (01) ==
LOC: ED 16:45
DX: F10.220 Alcohol dependence with intoxication, uncomplicated (principal); J44.9 Chronic obstructive pulmonary disease, unspecified; F17.200 Nicotine dependence, unspecified, uncomplicated; I50.9 Heart failure, unspecified; Z90.5 Acquired absence of kidney; Y90.0 Blood alcohol level of less than 20 mg/100 ml
CPT/HCPCS: 36415; 80048; 80307; 82040; 85025; 99283

== ENCOUNTER 2020-04-08 20:49 | Emergency (ER) | payer MEDICAID, MEDICARE ==
[2020-04-08] MEDS ORDERED: CODE BLUE RESPONSE XX ONE (20:50)
[2020-04-08] MEDS ORDERED: EPINEPHRINE SYRINGE 0.1 MG/ML, 10ML ONE (20:50)
--- NOTE | 2020-04-08 21:14 | NUR ---
PT ARRIVED WITH CPR IN PROGRESS. PT WAS FOUND DOWN IN MIDDLE OF ROAD, PT WAS CONSCIOUS WHEN EMS ARRIVED AND BECAME AGONAL AND THEN UNRESPONSIVE. CPR STARTED EN ROUTE TO ED, CPR IN PROGRESS ON ARRIVAL. 3 AMPS OF EPI GIVEN WITH EMS, WITH ADDITIONAL 2 AMPS GIVEN BY RN. PULSE CHECK FOUND NO PULSES EACH TIME, PT ASYSTOLE. TIME OF 20:58. PER EMS, PT HAS WRIST BAND FROM PREVIOUS ER VISIT TODAY.
--- NOTE | 2020-04-08 21:22 | NUR ---
TASK RN: CALLED [employer] AND SPOKE WITH KADI. PT ACCEPTED FOR TISSUE DONATION BUT DECLINED FOR ORGAN DONATION D/T TRAUMATIC W/CPR. .
--- NOTE | 2020-04-08 21:58 | NUR ---
TRANSFER IRON OPERATOR CONTACTED AND STATES THEY TAKE PT. AWAITING ARRIVAL.
--- NOTE | 2020-04-08 22:40 | NUR ---
JANITORIAL CLEANER AND TELEPHONE LINES REPAIRER AT BEDSIDE.
--- NOTE | 2020-04-08 23:07 | NUR ---
ATTEMPTED TO CALL PHONE NUMBER IN PT CHART WITH NO ANSWER. UNABLE TO NOTIFY NEXT OF KIN.
--- NOTE | 2020-04-09 00:38 | NUR ---
NEXT OF KIN KENNEDI ARMENDARIZ NOTIFIED. . SPOOL WINDER AWARE OF NOTIFICATION.
== END 2020-04-08 23:24 | disposition expired ==
LOC: ED 21:10
DX: I46.9 Cardiac arrest, cause unspecified (principal); S00.81XA Abrasion of other part of head, initial encounter; F10.20 Alcohol dependence, uncomplicated; Y90.9 Presence of alcohol in blood, level not specified; F17.200 Nicotine dependence, unspecified, uncomplicated; J44.9 Chronic obstructive pulmonary disease, unspecified; I50.9 Heart failure, unspecified; X58.XXXA Exposure to other specified factors, initial encounter; Y93.89 Activity, other specified; Y92.89 Other specified places as the place of occurrence of the external cause; Y99.8 Other external cause status
CPT/HCPCS: 36415; 80048; 80307; 82040; 85025; 92950; 99283; 99291